=== PATIENT | female | born 1975 | race Caucasian/White ===

== ENCOUNTER → 2020-11-28 | Outpatient (CLI) | payer BC, OTHER ==
--- NOTE | 2020-11-28 18:12 | Diagnostic Imaging Report ---
PROCEDURE: US non-OB pelvis comp/trans. INDICATION: Hypertrophy of uterus. TECHNIQUE: Multiple real time grayscale sonographic images were obtained of the pelvis, transabdominally and endovaginally. CORRELATION STUDY: None. FINDINGS: UTERUS: 9.3 x 5.1 x 6.1 cm. Area of heterogeneity with the vascular blood flow along the anterior aspect favors probable fibroid at 3.5 x 2.6 x 1.8 cm. Cervical nabothian cysts are present measuring up to 8 mm in size. ENDOMETRIUM: 27 mm. The endometrium is rather markedly thickened, heterogeneous and vascularized. RIGHT OVARY: 1.7 x 1.4 x 2.1 cm. The right ovary has an unremarkable appearance. No concerning mass. Blood flow is present. LEFT OVARY: 3.3 x 1.6 x 2.7 cm Relatively simple appearing cyst at 1.6 x 1.6 x 0.9 cm. Blood flow is demonstrated to the ovary. No significant free pelvic fluid. IMPRESSION: 1. Markedly thick abnormally thickened endometrium with heterogeneous echotexture and vascular blood flow. Differential considerations include endometrial malignancy, hyperplasia or less likely polyp. 2. Probable fibroid uterus. Dictated by: Dictated on workstation # [id number]
== END ==
LOC: RAD 13:06
PROVIDERS: ATTEND Obstetrics & Gynecology
DX: N85.00 Endometrial hyperplasia, unspecified (principal); N85.2 Hypertrophy of uterus
CPT/HCPCS: 76830; 76856

== ENCOUNTER 2020-12-10 05:32 | Outpatient (CLI) | payer BC ==
[~2020-12-10] VITALS: Ht 157.5 cm; Wt 86.8 kg
[2020-12-10] MEDS ORDERED: ALPR0.5T PO (13:38)
[2020-12-10] MEDS ORDERED: MULT-1136 PO (13:38)
[2020-12-10] MEDS ORDERED: PHEN37.53 PO (13:38)
== END 2020-12-10 14:08 | disposition home or self-care (01) ==
LOC: PREOP 05:32
PROVIDERS: ATTEND Obstetrics & Gynecology
DX: Z01.818 Encounter for other preprocedural examination (principal)

== ENCOUNTER 2020-12-17 08:19 | Day surgery (SDC) | payer BC ==
[2020-12-17] VITALS (10 sets, daily range): BP systolic 129–149; BP diastolic 72–96
[~2020-12-17] VITALS: Ht 157.5 cm; Wt 86.8 kg
[~2020-12-17 08:19] MED LIST: ALPR0.5T PO; MULT-1136 PO; PHEN37.53 PO
[2020-12-17] MEDS ORDERED: ceFAZolin 2 GM IV Premixed 50 ML IV ONE (08:30)
[2020-12-17] MEDS ORDERED: LACTATED RINGERS 1,000 ML IV PRN (08:30)
[2020-12-17] MEDS ORDERED: MIDAZOLAM 2 MG/2 ML (VERSED) VIAL ONE (08:35)
[2020-12-17] MEDS ORDERED: fentaNYL INJ 100 MCG/2 ML AMP ONE ×2 (08:35→11:10)
[2020-12-17] MEDS ORDERED: SEVOFLURANE (ULTANE) 15 ML INHAL SOLN ONE ×2 (08:35→10:44)
[2020-12-17] MEDS ORDERED: proPOfol 200 MG/20 ML (DIPRIVAN) VIAL IV ONE (08:35)
[2020-12-17] MEDS ORDERED: LIDOCAINE PF 2% 5 ML (XYLOCAINE) VIAL ONE (08:35)
[2020-12-17] MEDS ORDERED: ONDANSETRON 4 MG/2 ML (SDV) Z0FRAN ONE (08:35)
[2020-12-17 09:03] LABS: BASOPHILS # (AUTO) 0.1 10^3/uL (0.0-0.1); BASOPHILS % (AUTO) 2 % (0-10); EOSINOPHILS # (AUTO) 0.3 10^3/uL (0.0-0.3); EOSINOPHILS % (AUTO) 4 % (0-10); HEMATOCRIT 41 % (35-52); HEMOGLOBIN 13.5 g/dL (11.5-16.0); LYMPHOCYTES # (AUTO) 2.1 10^3/uL (1.0-4.0); LYMPHOCYTES % (AUTO) 27 % (12-44); MEAN CORPUSCULAR HEMOGLOBIN 29 pg (25-34); MEAN CORPUSCULAR HGB CONC 33 g/dL (32-36); MEAN CORPUSCULAR VOLUME 87 fL (80-99); MEAN PLATELET VOLUME 10.4 fL (9.0-12.2); MONOCYTES # (AUTO) 0.6 10^3/uL (0.0-1.0); MONOCYTES % (AUTO) 7 % (0-12); NEUTROPHILS # (AUTO) 4.6 10^3/uL (1.8-7.8); NEUTROPHILS % (AUTO) 60 % (42-75); PLATELET COUNT 472 10^3/uL (130-400); WHITE BLOOD COUNT 7.6 10^3/uL (4.3-11.0)
--- NOTE | 2020-12-17 09:29 | Progress Note-Pre Operative ---
Pre-Operative Progress Note H&P Reviewed The H&P was reviewed, patient examined and no changes noted. Date Seen by Provider: December 17, 2020 Time Seen by Provider: : Date H&P Reviewed: December 17, 2020 Time H&P Reviewed: :30 Pre-Operative Diagnosis: thickened endometrial polyp, unable to biopsy in office. MIKEL BALLESTEROS DO December 17, 2020 09:29
[2020-12-17] MEDS ORDERED: KETOROLAC 30 MG/ML VIAL ONE (11:03)
--- NOTE | 2020-12-17 11:05 | Operative Report ---
Operative Report Date of Procedure/Surgery December 17, 2020 Surgeon (s) MIKEL BALLESTEROS DO Manager Facility (s): [facility] Post-Operative Diagnosis same abnormal uterine bleeding thickened endometrium endometrial polyp? vs sub mucosal fibroid FS consistent with Procedure Performed hysteroscopy, dilation and curettage, Jenifer endometrial ablation Description of Procedure Anesthesia Type: General Estimated blood loss (mL): minimal Specimen(s) collected/removed endometrial curettings Description of the Procedure With informed consent the patient was taken to the operating room where general anesthesia was found to be adequate. she ws then prepped and draped in the usual sterile fashion in the dorsolithotomy position. A straight catheter was used to drain the bladder of clear, yellow urine A speculum was then placed in the vagina and the anterior lip of the cervix was grasped with a tenaculum. The cervix was then gently dilated with Jeff dilators and then the hysteroscope was inserted. The above mentioned findings were seen. There appears to be proliferative endometrium with a free floating small area of tissue that appeared to be polypoid and then a small posterior lesion likely a submucosal fibroid. I then inserted a small curette and a gentle curettage was done. there was a moderate amount of tissue removed. On follow up hysteroscope, the posterior lesion was removed. It was then decided to proceed with the ablation. Frozen section appeared to be proliferative endometrium and some small fragments of proliferative endometrium. I measured the cervical os and the endometrial canal with the sound included with the Jenifer. The canal measured 6.5 cm and the Jenifer was then inserted. The compliance tests were completed and passed. Once this was passed, the ablation was begun in standard fashion to 120 seconds as is standard. Once the ablation was completed, the device was removed. A follow up hysteroscope revealed a typically ablated endometrial cavity. the device was removed. The instruments were removed from the vagina. The patient was awakened and taken to recovery in a stable condition. Sponge, lap, needle and instrument counts were correct times. two. Findings of the Procedure proliferative endometrial tissue with an area of polypoid appearing tissue and posterior area that appeared to be a submucosal fibroid FS consistent with proliferative endometrium with possible small fragments of smooth muscle. Allergies and Home Medications Allergies Coded Allergies: No Known Drug Allergies (Unverified , 12/10/20) Home Medications Alprazolam 0.5 Mg Tablet, 0.5 MG PO HS, (Reported) Multivitamin 1 Each Tablet, 1 EACH PO DAILY, (Reported) Phentermine HCl 37.5 Mg Tablet, 37.5 MG PO DAILY, (Reported) Patient Home Medication List Home Medication List Reviewed: Yes MIKEL BALLESTEROS DO December 17, 2020 11:05
--- NOTE | 2020-12-17 11:07 | Anesthesia-General Post-Op ---
General Patient Condition Mental Status/LOC: Same as Preop Cardiovascular: Satisfactory Nausea/Vomiting: Absent Respiratory: Satisfactory Pain: Controlled Complications: Absent Post Op Complications Complications None Follow Up Care/Instructions Patient Instructions None needed. Anesthesia/Patient Condition Patient Condition Patient is doing well, no complaints, stable vital signs, no apparent adverse anesthesia problems. No complications reported per nursing. ROSSY CORDOVA CRNA December 17, 2020 11:07
[2020-12-17] MEDS ORDERED: ACET-93 PO (11:09)
[2020-12-17] MEDS ORDERED: OXC5T PO (11:09)
[2020-12-17] MEDS ORDERED: IBUP-1773 PO (11:09)
--- NOTE | 2020-12-17 11:10 | Discharge Inst-Women's Service ---
Discharge Inst-Women's Serv Depart Medication/Instructions New, Converted or Re-Newed RX: RX on Chart Final Diagnosis abnormal uterine bleeding thickened endometrium Problems Reviewed?: Yes Consults/Follow Up Additional Follow Up: Yes (1-2 weeks for post op discussion/pathology review) Activity Activity: Activity as Tolerated Driving Instructions: No Driving for 24 Hours NO SMOKING: NO SMOKING Nothing Inside Vagina: No Douching, No [place], No Tampons Diet Discharge Diet: No Restrictions Symptoms to Report to : Bleeding Excessive, Pain Increased, Fever Over 101 Degrees F, Vaginal Bleeding Increase, Cramps in Feet or Legs, Vaginal Discharge Foul For Any Problems or Questions: Contact Your Physician MIKEL BALLESTEROS DO December 17, 2020 11:10
[2020-12-17] MEDS ORDERED: KETOROLAC 30 MG/ML VIAL IVP ONE (11:15)
[2020-12-17] MEDS ORDERED: ACETAMINOPHEN 500 MG TAB (TYLENOL) PO ONE (11:15)
[2020-12-17] MEDS ORDERED: morphine INJ 10 MG/ML 1ML (SYR OR VIAL) IVP ONE (11:15)
[2020-12-17] MEDS ORDERED: ACETAMINOPHEN 500 MG TAB (TYLENOL) PO PRN (11:15)
[2020-12-17] MEDS ORDERED: ONDANSETRON 4 MG/2 ML (SDV) Z0FRAN IVP PRN ×2 (11:15)
[2020-12-17] MEDS ORDERED: D5 LR IV SOLUTION 1,000 ML IV SCH (11:15)
[2020-12-17] MEDS ORDERED: fentaNYL INJ 100 MCG/2 ML AMP IVP ONE (11:15)
== END 2020-12-17 14:16 | disposition home or self-care (01) ==
LOC: SDC 08:19
PROVIDERS: ATTEND Obstetrics & Gynecology
DX: D25.0 Submucous leiomyoma of uterus (principal); R93.89 Abnormal findings on diagnostic imaging of other specified body structures; E66.9 Obesity, unspecified; Z68.35 Body mass index [BMI] 35.0-35.9, adult; F17.210 Nicotine dependence, cigarettes, uncomplicated; Z79.899 Other long term (current) drug therapy
CPT/HCPCS: 36415; 84703; 85025; 87081